=== PATIENT | female | born 1970 | race Caucasian/White ===

== ENCOUNTER 2021-12-28 22:16 | Emergency (ER) | payer OTHER, SELFPAY ==
[2021-12-28 22:22] VITALS: BP 137/74; PULSE 98; RESP 16; TEMP 36.4; O2SAT 99
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
[2021-12-28 22:52] VITALS: BP 139/81; PULSE 87; RESP 16; TEMP 36.4; O2SAT 99
[2021-12-29 00:02] VITALS: BP 139/81; PULSE 87; RESP 16; TEMP 36.4; O2SAT 99
--- NOTE | 2021-12-29 09:43 | DCPLANNER ---
Addendum entered by Ifeoma Viveros 12/29/21 14:29: Ortho contacted porter sample case stating that patient is not from this area, and will follow up with ortho closer to home. Original Note: manager background had message to schedule a follow up appointment for patient with ortho. manager background called the ortho clinic, spoke with Sharri, gave clinic patients information. manager background was told that patients information would be printed and reviewed. Clinic will call patient with appointment information.
== END 2021-12-28 23:40 | disposition home or self-care (01) ==
PROVIDERS: Emergency Provider Nurse Practitioner Family
DX: S43.084A Other dislocation of right shoulder joint, initial encounter (principal); S42.291A Other displaced fracture of upper end of right humerus, initial encounter for closed fracture; V86.95XA Unspecified occupant of 3- or 4- wheeled all-terrain vehicle (ATV) injured in nontraffic accident, initial encounter
CPT/HCPCS: 23650; 73030; 99282